=== PATIENT | female | born 1985 | race Caucasian/White ===

== ENCOUNTER 2016-12-27 14:46 | Day surgery (SDC) | payer OTHER ==
[~2016-12-27] VITALS: Ht 170.2 cm; Wt 53.5 kg
[2016-12-27] MEDS ORDERED: FLUO20CA22 PO (15:31)
[2016-12-27] MEDS ORDERED: [UNRECOGNIZED DRUG - REMARK] (15:31)
[2016-12-27] MEDS ORDERED: AMIN700T PO (15:31)
[2016-12-27 15:34] VITALS: Ht 170.2 cm; Wt 53.5 kg
[2016-12-27 15:53] VITALS: BP 100/55; PULSE 64; RESP 13
[2016-12-27] MEDS ORDERED: LIDOCAINE 2% (SDV) 5 ML INJ ONE (16:04)
[2016-12-27] MEDS ORDERED: PROPOFOL 40 ML ONE (16:04)
[2016-12-27 17:16] VITALS: BP 98/62; RESP 20
--- NOTE | 2016-12-28 09:47 | GILP ---
DATE OF PROCEDURE: 12/27/2016 PROCEDURE: Esophagogastroduodenoscopy with biopsies. SURGEON: Luis Fang MD HISTORY AND INDICATIONS: The patient is being evaluated for abdominal pain. PREMEDICATION: Monitored anesthesia care by anesthesiologist. TECHNIQUE: After informed consent, with the patient/relatives understanding the procedure, its indic ations, potential risks and complications, including but not limited to: allergic reaction, bleeding , perforation or infection, and after all pertinent questions were answered to the patient's satisfa ction, the patient/relatives signed witnessed informed consent. Following this, premedication was administered slowly IV push under careful cardiovascular and respi ratory monitoring with pulse oximetry, automatic blood pressure and animal maintenance supervisor. Once the sedative effect was achieved the patient was place in the left lateral decubitus, the panen doscope was introduced and advanced under visual control. Careful examination of the upper gastrointestinal tract, both on insertion as well as withdrawal of the instrument disclosed the following findings: ESOPHAGUS: The distal esophagus shows mild erythema of the mucosa. There is irregularity of the EG junction which is biopsied to rule out Rivera esophagus. STOMACH: Upon entrance to the stomach air was insufflated, the gastric woodard distended normally. The re was erythema and edema of the mucosa to a moderate degree. Biopsies were obtained to rule out H. pylori infection. PYLORUS: The pylorus appears patent and within normal limits, with no evidence of gastric outlet obs truction. DUODENUM: The duodenal mucosa was carefully examined in the duodenal bulb as well as the second port ion of the duodenum and appears unremarkable with no evidence of duodenitis, ulcer or neoplasm. The instrument was then withdrawn, the patient tolerated the procedure well and was transfer out of the endoscopy suite awake, and in good condition to continue recovery under observation IMPRESSION: 1. Distal esophagitis, mild. 2. Irregular esophagogastric junction, rule out Rivera esophagus, biopsies obtained. 3. Gastritis, rule out Helicobacter pylori infection. PLAN: The patient will be treated with PPIs. Pathology will be reviewed as soon as available. Fur ther recommendation will depend on patient's clinical course as well as review of biopsies. Dictated By: LUIS FANG MS/SAAD Conf#: [id number] DID#: [id number]
--- NOTE | 2016-12-28 09:57 | GILP ---
DATE OF PROCEDURE: 12/27/2016 PROCEDURE: Colonoscopy to cecum. BRIEF HISTORY AND INDICATIONS: The patient is being evaluated for abdominal pain and rectal bleedi ng. PREMEDICATION: Monitored anesthesia care by anesthesiologist. SURGEON: Luis Fang MD. INSTRUMENT USED: Olympus colonoscope. PREPARATION: Adequate. TECHNIQUE: After informed consent, with the patient/relatives understanding the procedure, its indic ations potential risks and complications, including but not limited to: allergic reaction, bleeding, perforation, infection, missed lesions and after all pertinent questions were answered to the patie nt's satisfaction, the patient/relatives signed the witnessed informed consent. Following this, premedication was administered slowly IV push by under careful cardiovascular and re spiratory monitoring with pulse oximetry, automatic blood pressure and millwright instructor. Once the sedativ e effect was achieved, the patient was placed in the left lateral decubitus position, digital rectal examination was performed. The colonoscope was then introduced and advanced under visual control th roughout all segments of the colon including: the rectum, sigmoid, descending colon, splenic flexure , transverse colon, hepatic flexure, ascending colon and finally reaching the cecum which was clearl y identified by transillumination, finger indentation and the ileocecal valve. Careful examination o f the mucosa of the lower gastrointestinal tract both on insertion as well as withdrawal of the inst rument disclosed the following findings: Rectal Examination: No evidence of perirectal disease, no masses. Colonic Mucosa: The colonic mucosa unremarkable throughout. The ileocecal valve was clearly identif ied and appears unremarkable. Instrument was withdrawn. On withdrawal of the instrument, no additi onal abnormalities are noted with exception of moderate sized internal hemorrhoids. The instrument was then withdrawn, the patient tolerated the procedure well and was transferred out of the Endoscopy Suite awake and in good condition to continue recovery under observation. IMPRESSION: 1. Moderate sized internal hemorrhoids. 2. Otherwise, normal colonic mucosa to cecum. PLAN: The patient will be followed up as an outpatient and further recommendations will depend on h er clinical course. Dictated By: LUIS QUINTANA Conf#: [id number] DID#: [id number]
== END 2016-12-27 17:36 | disposition home or self-care (01) ==
LOC: GIL 14:46
PROVIDERS: ATTEND Internal Medicine Gastroenterology
DX: K29.30 Chronic superficial gastritis without bleeding (principal); K21.0 Gastro-esophageal reflux disease with esophagitis; K64.4 Residual hemorrhoidal skin tags
CPT/HCPCS: 43239; 45378; 84703; 88305; 88312; 88313; Z7610